=== PATIENT | male | born 1955 | race Caucasian/White ===

== ENCOUNTER 2017-08-08 07:42 | Emergency (ER) | payer MEDICARE ==
[~2017-08-08] VITALS: Ht 177.8 cm; Wt 118.0 kg
[~2017-08-08 07:42] MED LIST: BABY ASPIRIN81 MG OR; NAPROSYN500 MG OR; NEXIUM40 M1 OR; [UNRECOGNIZED DRUG - REMARK]; [UNRECOGNIZED DRUG - REMARK]
[2017-08-08 08:09] LABS: HEMATOCRIT 42.4 % (39.0-50.0); HEMOGLOBIN 14.1 g/dl (14.0-18.0); IMMATURE GRANULOCYTES 0.3 % (0.0-1.0); MEAN CORPUSCULAR HGB 28.3 pG CALC (26.0-32.0); MEAN CORPUSCULAR HGB CONC 33.3 g/L CALC (32.0-36.0); NEUT# 7.73 thou/uL (1.82-7.42); RED BLOOD COUNT 4.99 mill/uL (4.70-6.10); RED CELL DISTRI WIDTH 14.9 % (11.5-15.5)
[2017-08-08] MEDS ORDERED: HYDROCODONE BIT1 TA7 PO (08:14)
[2017-08-08] MEDS ORDERED: LEVOTHYROXIN50 MCG PO (08:15)
[2017-08-08] MEDS ORDERED: HYDROCHLOROT25 MG PO (08:16)
[2017-08-08] MEDS ORDERED: BENAZEPRIL10 MG PO (08:16)
[2017-08-08] MEDS ORDERED: CELEXA20 MG PO (08:17)
[2017-08-08] MEDS ORDERED: XELJANZ5 MG (08:19)
[2017-08-08 08:43] LABS: ALBUMIN 4.4 g/dL (3.2-5.0); ALKALINE PHOSPHATASE 88 u/l (38-126); ANION GAP 19 (6-22 (CALC)); BILIRUBIN, TOTAL 0.4 mg/dL (0.0-1.4); BUN 19 mg/dL (8-23); BUN/CREATININE RATIO 18 (12-20 (CALC)); CARBON DIOXIDE 27 mmol/l (22-30); CHLORIDE 101 mmol/l (95-108); CREATININE 1.1 mg/dL (0.7-1.3); GFR > 60 ML/MIN (>=60 (CALC)); GFR FOR AFR.AMER. > 60 ML/MIN (>=60 (CALC)); LIPASE 103 u/l (23-300); SGOT/AST 35 u/l (19-48); SGPT/ALT 39 u/l (11-66); SODIUM 143 mmol/l (137-146); TOTAL PROTEIN 7.5 g/dL (6.3-8.2)
[2017-08-08 09:39] LABS: URINE BILIRUBIN - DIPSTICK NEGATIVE (NEGATIVE); URINE BLOOD DIPSTICK LARGE (NEGATIVE); URINE COLOR YELLOW; URINE GLUCOSE - DIPSTICK NEGATIVE (NEGATIVE); URINE KETONE NEGATIVE (NEGATIVE); URINE LEUK ESTERASE NEGATIVE (NEGATIVE); URINE NITRITE - DIPSTICK NEGATIVE (Negative); URINE PH 5.5 (4.5-8.0); URINE PROTEIN - DIPSTICK NEGATIVE (NEG-TRACE); URINE SPECIFIC GRAVITY 1.025; URINE UROBILINOGEN - DIPSTICK 0.2 E.U./dL (0.2)
[2017-08-08 09:40] LABS: URINE CLARITY SL CLOUDY
[2017-08-08 09:41] LABS: URINE RBC 25-50 RBC/hpf (0-5)
[2017-08-08] MEDS ORDERED: CIPROFLOXACIN250 MG PO (09:55)
[2017-08-08] MEDS ORDERED: TRAMADOL HYDROC50 MG PO (09:55)
[2017-08-08] MEDS ORDERED: TAMSULOSIN0.4 MG PO (09:55)
[2017-08-08 10:08] VITALS: BP 153/71
== END 2017-08-08 10:25 | disposition home or self-care (01) ==
LOC: ED 07:42
PROVIDERS: Emergency Medicine
DX: N20.1 Calculus of ureter (principal); I10 Essential (primary) hypertension; N28.89 Other specified disorders of kidney and ureter